=== PATIENT | female | born 1965 | race Caucasian/White ===

== ENCOUNTER → 2017-06-18 | Outpatient (CLI) | payer OTHER ==
[~2017-06-18] MED LIST: ACCUNEB SO1.25 MG/1; ACETAMINOPHEN-1 EAC1; ANDROGEL5 GM TD; CENTRUM SILVER1 EAC4 PO; ESTROGEN PATCH; FIRST-TESTOSTER60 G1; HORMONE PATCH; PHENERGAN50 MG RC; TYLENOL325 MG PO; VITAMIN D1000 UNI1 PO; VIVELLE-DOT1 EAC1 TRANSDERM; ZOFRAN 4 MG ORAL4 M1; ZOFRAN ODT4 MG PO; [UNRECOGNIZED DRUG - OTHER] PO
--- NOTE | ~2017-06-18 | EKG ---
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 WHITLEY : 1965 Requested By: Reema Wood Order Number: [id number] MD: Hakeem Sue Measurements Intervals [place] Rate: 52 P: 73 [place]: 134 QRS: 78 QRSD: 75 T: 59 QT: 433 QTc: 403 Interpretive Statements Sinus rhythm ST elev, probable normal early repol pattern Baseline wander in lead(s) V5 Compared to ECG 02/04/2014 21:59:40 ST (T wave) deviation now present Electronically Signed On 06-18-2017 12:51:38 CDT by Hakeem Sue [email or web address] <ELECTRONICALLY SIGNED> By: Hakeem Sue MD 06/18/17 1251 1030 1030 Hakeem Sue MD /EPI
== END ==
LOC: CV 10:09
DX: Z01.810 Encounter for preprocedural cardiovascular examination (principal); I25.2 Old myocardial infarction